=== PATIENT | female | born 1940 | race Caucasian/White ===

== ENCOUNTER 2017-08-20 16:34 | Emergency (ER) | payer OTHER ==
[2017-08-20 16:55] VITALS: BP 162/89; PULSE 119; TEMP 97.8; BMI 21.8
[2017-08-20] MEDS ORDERED: diphenhydrAMINE HCL 25 MG CAPSULE (FP) PO ONE ×2 (18:05→18:17)
[2017-08-20] MEDS ORDERED: CEPHALEXIN MONOHYDRATE 500 MG CAPSULE (UD) PO ONE (18:05)
--- NOTE | 2017-08-20 18:12 | PDOC ---
History of Present Illness - General Chief Complaint: Bite Stated Complaint: WOUND Time Seen by Provider: 08/20/17 17:54 History Source: Patient Exam Limitations: No Limitations - History of Present Illness Initial Comments: 08/20/17 18:15 Patient came for evaluation of hot, mildly tender, and pruritic lesion to her right under arm of humeral area. Is uncertain as to cause, thinks may be an insect bite. Denies fever, denies pain, denies any drainage from the area.no medications or relief of symptoms Timing/Duration: reports: getting worse Severity: Yes: mild, moderate Location: reports: extremities (left upper arm ) Respiratory Risk Factors: reports: no cause identified, insect bite, insect sting Associated Symptoms: reports: denies symptoms Past History - Travel Traveled outside of the country in the last 30 days: No Close contact w/someone who was outside of country & ill: No - Past Medical History Allergies/Adverse Reactions: Allergies Allergy/AdvReac Type Severity Reaction Status Date / Time Sulfa (Sulfonamide Allergy Unknown Verified 08/20/17 16:48 Antibiotics) Home Medications: Ambulatory Orders Amlodipine Besylate [Norvasc -] 5 mg PO BID 03/09/16 Aspirin [ASA -] 81 mg PO DAILY 03/09/16 Cephalexin Monohydrate [Keflex -] 500 mg PO Q8H #21 capsule 08/20/17 Diphenhydramine HCl [Benadryl -] 25 mg PO Q8H PRN #21 capsule 08/20/17 Asthma: Yes CVA: No COPD: No DVT: No Disorders: Yes (H/O UTIS.) HTN: No - Immunization History Immunization Up to Date: Yes - Suicide/Smoking/Psychosocial Hx Smoking History: Never smoked Have you smoked in the past 12 months: No Information on smoking cessation initiated: No Hx Alcohol Use: No Drug/Substance Use Hx: No Substance Use Type: None Review of Systems - Review of Systems Able to Perform ROS?: Yes Is the patient limited [place] proficient: Yes Constitutional: Yes: Symptoms Reported, See HPI, Malaise. No: Fever HEENTM: Yes: See HPI. No: Symptoms Reported, Throat Swelling Respiratory: Yes: See HPI. No: Symptoms reported, Cough, Wheezing Musculoskeletal: Yes: Symptoms Reported Integumentary: Yes: Symptoms Reported, See HPI All Other Systems: Reviewed and Negative *Physical Exam - Vital Signs Last Vital Signs Temp Pulse Resp BP Pulse Ox 97.8 F 119 H 17 162/89 98 08/20/17 16:49 08/20/17 16:49 08/20/17 16:49 08/20/17 16:49 08/20/17 16:49 - Physical Exam General Appearance: Yes: Nourished, Appropriately Dressed, Apparent Distress HEENT: positive: YASMEEN, Normal ENT Inspection, TMs Normal, Pharynx Normal Neck: positive: Supple. negative: Tender, Lymphadenopathy (R), Lymphadenopathy (L) Respiratory/Chest: positive: Lungs Clear, Normal Breath Sounds. negative: Wheezing Gastrointestinal/Abdominal: positive: Normal Bowel Sounds, Tender, Flat, Soft Musculoskeletal: positive: Normal Inspection. negative: CVA Tenderness Extremity: positive: Normal Capillary Refill, Normal Inspection, Normal Range of Motion Integumentary: positive: Dry, Warm, Erythema (heat to under arm right humerus), Ecchymosis. negative: Normal Color Neurologic: positive: table filler II-XII NML intact, Fully Oriented, Alert, Normal Mood/ Affect, Normal Response, Motor Strength 5/5 Progress Note - Progress Note Progress Note: Probable insect bite with erythema, will treat with early cellulitis as patient is under treatment for skin cancer from dermatology and may be mildly immunosuppressed. *DC/Admit/Observation/Transfer Diagnosis at time of Disposition: Insect bite Qualifiers: Encounter type: initial encounter Qualified Code(s): W57.XXXA - Bitten or stung by nonvenomous insect and other nonvenomous arthropods, initial encounter - Discharge Dispostion Disposition: HOME Condition at time of disposition: Stable Admit: No - Referrals Referrals: Janette Chaudhari MD [Primary Care Provider] - - Patient Instructions Printed Discharge Instructions: How to Care for an Insect Bite or Sting Additional Instructions: Rest, keep cool and dry- avoid strenuous activity or hot /humid environments Less hot showers, no abrasive soaps May use heavy creams like Eucerin or Cetaphil to keep skin moist May apply Aveeno, calamine lotion, [id number] hydrocortisone creams as needed for symptoms May use Benadryl at night for antihistamine, Zyrtec/ Laya or Claritin for daytime antihistamine use to help with itching Keflex 500 mg tablet every 8 hours for one week May use [id number] hydrocortisone cream on all areas except face Try to identify cause for rash and avoid exposures Followup with PMD in one week if no resolution Make appointment with clamp remover for evaluation when possible - Post Discharge Activity
[2017-08-20] MEDS ORDERED: CEPHALEXIN MONOHYDRATE 500 MG CAPSULE (UD) ONE (18:17)
== END 2017-08-20 18:20 | disposition home or self-care (01) ==
LOC: JERFT 16:34
DX: S40.861A Insect bite (nonvenomous) of right upper arm, initial encounter (principal); L03.113 Cellulitis of right upper limb; W57.XXXA Bitten or stung by nonvenomous insect and other nonvenomous arthropods, initial encounter; Y93.89 Activity, other specified; Y92.89 Other specified places as the place of occurrence of the external cause; Y99.8 Other external cause status
CPT/HCPCS: 99281-25

== ENCOUNTER 2017-09-17 10:33 | Emergency (ER) | payer OTHER ==
[2017-09-17 10:48] VITALS: BP 146/67; PULSE 98; TEMP 97.2; BMI 20.4
--- NOTE | 2017-09-17 11:58 | PDOC ---
History of Present Illness - General Chief Complaint: Pain Stated Complaint: HEADACHE Time Seen by Provider: 09/17/17 11:44 History Source: Patient - History of Present Illness Initial Comments: 09/17/17 11:57 Patient is a 76 y.o. female with a PMH of basal cell carcinoma (s/p resection), Asthma, HTN and recurrent UTI who presents to our ED today c/o localized L sided temporal pain without any visual changes, jaw claudication/pain, fevers/ chills. Patient states the pain began last night and has been constant with no relief provided by OTC Nsaids. Allergy: Sulfa Surgical: cataract surgery PMD: Dr. Baez Past History - Past Medical History Allergies/Adverse Reactions: Allergies Allergy/AdvReac Type Severity Reaction Status Date / Time Sulfa (Sulfonamide Allergy Unknown Verified 09/17/17 10:42 Antibiotics) Home Medications: Ambulatory Orders Amlodipine Besylate [Norvasc -] 5 mg PO BID 03/09/16 Aspirin [ASA -] 81 mg PO DAILY 03/09/16 Asthma: Yes Cancer: Yes (? skin) CVA: No COPD: No DVT: No Disorders: Yes (H/O UTIS.) HTN: No - Immunization History Immunization Up to Date: Yes - Suicide/Smoking/Psychosocial Hx Smoking History: Never smoked Have you smoked in the past 12 months: No Hx Alcohol Use: No Drug/Substance Use Hx: No Substance Use Type: None Review of Systems - Review of Systems Constitutional: No: Chills, Fever HEENTM: No: Blurred Vision, Double Vision, Mouth Pain, Mouth Swelling Respiratory: No: Shortness of Breath Cardiac (ROS): No: Chest Pain ABD/GI: No: Constipated, Diarrhea, Nausea, Vomiting : No: Burning, Dysuria *Physical Exam - Vital Signs Last Vital Signs Temp Pulse Resp BP Pulse Ox 97.2 F L 98 H 18 146/67 99 09/17/17 10:42 09/17/17 10:42 09/17/17 10:42 09/17/17 10:42 09/17/17 10:42 - Physical Exam General Appearance: Yes: Nourished, Appropriately Dressed HEENT: positive: EOMI, YASMEEN, Other (frontal lobe abrasions 2/2 to recent basal cell carcinoma resection). negative: TM Bulging, TM Dull, TM Erythema Neck: positive: Trachea midline, Supple Respiratory/Chest: positive: Lungs Clear Cardiovascular: positive: S1, S2 Musculoskeletal: negative: CVA Tenderness (R), CVA Tenderness (L) Extremity: positive: Normal Capillary Refill, Normal Inspection Integumentary: positive: Normal Color, Dry, Warm Neurologic: positive: viscose department worker II-XII NML intact, Fully Oriented, Alert, Finger to Nose, Other (non-antalgic gait) ED Treatment Course - LABORATORY CBC & Chemistry Diagram: 09/17/17 12:14 09/17/17 12:17 Medical Decision Making - Medical Decision Making 09/17/17 16:13 Patient is a 76 y.o female who presents to the ED c/o acute onset of L sided temporal pain. Initial clinical suspicion for GCA - ESR wnL, CT Head negative for acute intracranial process. Patient to be discharged home with return precautions and Tylenol for pain control. *DC/Admit/Observation/Transfer Diagnosis at time of Disposition: Headache - Discharge Dispostion Disposition: HOME Condition at time of disposition: Good Admit: No - Referrals Referrals: Janette Chaudhari MD [Primary Care Provider] - - Patient Instructions Printed Discharge Instructions: DI for Headache Additional Instructions: You can take Tylenol for your headaches. Please return to the Emergency Department for any new/worsening/concerning symptoms. - Post Discharge Activity
[2017-09-17 12:19] LABS: BASO % 0.6 % (0-2.0); EOS % 1.2 % (0-4.5); HEMATOCRIT 46.1 % (32.4-45.2); HEMOGLOBIN 15.4 GM/dL (10.7-15.3); MCH 29.7 pg (25.7-33.7); MCHC 33.4 g/dl (32.0-36.0); MEAN CELL VOLUME 88.9 fl (80-96); MONO % 7.5 % (3.8-10.2); NEUT % 69.7 % (42.8-82.8); PLATELET COUNT 324 K/MM3 (134-434); RBC 5.19 M/mm3 (3.60-5.2); RDW 12.5 % (11.6-15.6); WHITE BLOOD COUNT 9.1 K/mm3 (4.0-10.0)
[2017-09-17] MEDS ORDERED: ACETAMINOPHEN 500 MG TABLET (FP) PO ONE (12:25)
[2017-09-17] MEDS ORDERED: ACETAMINOPHEN 325 MG TABLET (FP) ONE (12:27)
[2017-09-17 13:09] LABS: ALBUMIN 4.3 g/dl (3.4-5.0); ALK PHOS 76 U/L (45-117); ANION GAP 7 (8-16); BILIRUBIN,TOTAL 0.4 mg/dL (0.2-1.0); BLOOD UREA NITROGEN 16 mg/dL (7-18); CALCIUM 9.5 mg/dL (8.5-10.1); CHLORIDE 102 mmol/L (98-107); CO2 28 mmol/L (21-32); CREATININE 0.8 mg/dL (0.55-1.02); GLUCOSE,RANDOM 95 mg/dL (74-106); POTASSIUM 5.1 mmol/L (3.5-5.1); SGOT/AST 18 U/L (15-37); SGPT/ALT 20 U/L (12-78); SODIUM 137 mmol/L (136-145); TOT PROT 8.3 g/dl (6.4-8.2)
--- NOTE | 2017-09-17 15:24 | PDOC ---
Attending Attestation - Resident Resident Name: Emily Graham - ED Attending Attestation I have performed the following: I have examined & evaluated the patient, The case was reviewed & discussed with the resident, I agree w/resident's findings & plan, Exceptions are as noted <Nadia Melendez - Last Filed: 09/17/17 15:24> - HPI HPI: 09/17/17 15:55 Patient is a 76 year old female with a significant past medical history of Basal cell carcinoma, asthma, HTN, and urinary tract infections, who presents to the ED with complaints of left sided headache that began last night. Patient reports waking up from sleep last night, and began experiencing sudden onset of intense left sided headache. She reports headache has been constant since last night, prompting her to come in to the ED for evaluation. Patient reports taking tylenol for pain, with slight relief. Denies hx of similar episodes. Denies nausea, vomiting. Denies changes in vision , numbness, tingles. Denies SOB, chest pain. Allergies: Sulfa Social history: No smoking. No alcohol. No illicit drugs. Surgical history: Cataract surgery PMD: Dr. Cazares - Physicial Exam PE: 09/17/17 15:55 GENERAL: Awake, alert, and fully oriented, in no acute distress HEAD: +Hyperkeratotic lesion on the upper forehead, hx of basal cell carcinoma. No candice tenderness. No temporal arterial tenderness. No signs of trauma EYES: PERRLA, EOMI, sclera anicteric, conjunctiva clear ENT: Auricles normal inspection, hearing grossly normal, nares patent, oropharynx clear without exudates. Moist mucosa NECK: Normal ROM, supple, no lymphadenopathy, JVD, or masses LUNGS: Breath sounds equal, clear to auscultation bilaterally. No wheezes, and no crackles HEART: Regular rate and rhythm, normal S1 and S2, no murmurs, rubs or gallops ABDOMEN: Soft, nontender, normoactive bowel sounds. No guarding, no rebound. No masses EXTREMITIES: Normal range of motion, no edema. No clubbing or cyanosis. No cords, erythema, or tenderness NEUROLOGICAL: Cranial nerves II through XII grossly intact. Normal speech, SKIN: Warm, Dry, normal turgor, no rashes or lesions noted. - Medical Decision Making 09/17/17 15:55 Documentation prepared by Khai Lao, acting as medical reviewer for Nadia Melendez MD, /DO. <Khai Lao - Last Filed: 09/17/17 15:55>
[2017-09-17 17:01] LABS: ERYTHROCYTE SEDIMENTATION RATE 14 mm/hr (0-30)
--- NOTE | 2017-09-18 13:31 | EKG ---
Test Reason : Blood Pressure : / mmHG Vent. Rate : 099 BPM Atrial Rate : 099 BPM P-R Int : 138 ms QRS Dur : 084 ms QT Int : 352 ms P-R-T Axes : 072 -13 054 degrees QTc Int : 451 ms NORMAL SINUS RHYTHM LOW VOLTAGE QRS BORDERLINE ECG Confirmed by MD RUDY, JUAN ([id number]) on 09/18/2017 1:30:44 PM Referred By: Confirmed By:JUAN GRANT MD
== END 2017-09-17 17:31 | disposition home or self-care (01) ==
LOC: JERFT 10:33 → JER 10:33
DX: R51 Headache (principal)
CPT/HCPCS: 36415; 70450-TC; 80053; 85025; 85651; 93005; 93010; 99283-25

== ENCOUNTER 2017-11-05 03:53 | Emergency (ER) | payer OTHER ==
[2017-11-05 04:00] VITALS: BP 177/78; PULSE 103; TEMP 98; BMI 21.8
--- NOTE | 2017-11-05 04:36 | PDOC ---
History of Present Illness - General Chief Complaint: Pain Stated Complaint: RIB PAIN Time Seen by Provider: 11/05/17 04:33 History Source: Patient Exam Limitations: No Limitations - History of Present Illness Initial Comments: 11/05/17 04:36 Pt with pain to left side under lower ribs for several weeks. 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 Denies fever or chills or cough. Past History - Past Medical History Allergies/Adverse Reactions: Allergies Allergy/AdvReac Type Severity Reaction Status Date / Time Sulfa (Sulfonamide Allergy Unknown Verified 11/05/17 03:56 Antibiotics) Home Medications: Ambulatory Orders Amlodipine Besylate [Norvasc -] 5 mg PO BID 03/09/16 Aspirin [ASA -] 81 mg PO DAILY 03/09/16 Asthma: Yes Cancer: Yes (? skin) CVA: No COPD: No DVT: No Disorders: Yes (H/O UTIS.) HTN: No - Immunization History Immunization Up to Date: Yes - Suicide/Smoking/Psychosocial Hx Smoking History: Unknown if ever smoked Have you smoked in the past 12 months: No Hx Alcohol Use: No Drug/Substance Use Hx: No Substance Use Type: None Review of Systems - Review of Systems Constitutional: Yes: Symptoms Reported, See HPI. No: Chills, Diaphoresis, Fever , Loss of Appetite, Malaise, Weight Stable, Unexplained wgt Loss HEENTM: Yes: Symptoms Reported, See HPI. No: Eye Pain, Blurred Vision, Tearing , Recent change in vision, Double Vision, Ocular Prothesis, Ear Discharge, Nose Pain, Nose Congestion, Tinnitus Respiratory: Yes: Symptoms reported, See HPI, Other (left lower rib pain). No: Cough, Orthopnea, Shortness of Breath Cardiac (ROS): Yes: Symptoms Reported, See HPI. No: Chest Pain, Edema, Irregular Heart Rate, Lightheadedness, Palpitations, Chest Tightness ABD/GI: Yes: Symptoms Reported, See HPI. No: Abdominal Distended, Abd. Pain w/ defecation, Blood Streaked Bowels, Constipated, Difficulty Swallowing : Yes: Symptoms Reported, See HPI. No: Burning, Dysuria, Discharge, Frequency , Flank Pain, Hematuria, Pain Musculoskeletal: Yes: Symptoms Reported, See HPI. No: Back Pain, Joint Pain, Joint Swelling, Muscle Pain, Neck Pain Integumentary: Yes: Symptoms Reported, See HPI. No: Bruising, Change in Color, Change in Hair/Nails, Dryness, Flushing, Lesions Neurological: Yes: Symptoms reported, See HPI. No: Headache, Numbness, Paresthesia, Pre-Existing Deficit, Seizure, Weakness Psychiatric: No: Anxiety, Depression, Frequent Crying, Stressors, Sleep Pattern Change Endocrine: Yes: Symptoms Reported, See HPI. No: Excessive Sweating, Flushing, Intolerance to Cold, Intolerance to Heat, Increased Hunger, Unexplained Weight Gain Hematologic/Lymphatic: Yes: Symptoms Reported, See HPI. No: Anemia, Blood Clots , Easy Bleeding, Lymph Node Abnormalities *Physical Exam - Vital Signs Last Vital Signs Temp Pulse Resp BP Pulse Ox 98 F 103 H 18 177/78 96 11/05/17 03:59 11/05/17 03:59 11/05/17 03:59 11/05/17 03:59 11/05/17 03:59 - Physical Exam Comments: 11/05/17 04:39 *Physical Exam General Appearance: Yes: Appropriately Dressed. No: Apparent Distress, Intoxicated HEENT: positive: EOMI, YASMEEN, Normal ENT Inspection, Normal Voice, TMs Normal, Pharynx Normal. negative: Pale Conjunctivae, Photophobia, Scleral Icterus (R), Scleral Icterus (L) Neck: positive: Trachea midline, Normal Thyroid, Supple. negative: Tender, Rigid, Carotid bruit, Stridor, Lymphadenopathy (R), Lymphadenopathy (L), Thyromegaly Respiratory/Chest: positive: Lungs Clear, Normal Breath Sounds. negative: Chest Tender, Respiratory Distress, Accessory Muscle Use, Labored Respiration, RES, Crackles, Rales, Rhonchi, Stridor, Wheezing, Dullness Cardiovascular: positive: Regular Rhythm, Regular Rate, S1, S2. negative: Edema , JVD, Murmur, Bradycardia, Tachycardia Vascular Pulses: Dorsalis-Pedis (R): 2+, Doralis-Pedis (L): 2+ Gastrointestinal/Abdominal: positive: Normal Bowel Sounds, Flat, Soft. negative : Tender, Organomegaly, Pulsatile Mass, Increased Bowel Sounds, Decreased BS, Distended, Guarding, Rebound, Hernia, Hepatomegaly, Spleenomegaly Lymphatic: negative: Adenopathy, Tenderness Musculoskeletal: positive: Normal Inspection. negative: CVA Tenderness, Decreased Range of Motion Extremity: positive: Normal Capillary Refill, Normal Inspection, Normal Range of Motion, Pelvis Stable. negative: Tender, Pedal Edema, Swelling, Erythema Integumentary: positive: Normal Color, Dry, Warm. negative: Cyanotic, Erythema , Jaundice, Rash Neurologic: positive: optical brightener maker helper II-XII NML intact, Fully Oriented, Alert, Normal Mood/ Affect, Motor Strength 5/5. negative: EOM Palsy, Facial Droop, Sensory Deficit ED Treatment Course - RADIOLOGY Radiology Studies Ordered: Category Date Time Status CHEST CT WITHOUT CONTRAST [CT] Stat CT Scan 11/05/17 04:35 Ordered *DC/Admit/Observation/Transfer Diagnosis at time of Disposition: Atypical chest pain, Left-sided chest wall pain - Discharge Dispostion Disposition: HOME Condition at time of disposition: Stable Admit: No - Referrals - Patient Instructions Printed Discharge Instructions: DI for Atypical Chest Pain Additional Instructions: take tylenol or Motrin for pain as needed. Return if any problems - Post Discharge Activity
== END 2017-11-05 05:41 | disposition home or self-care (01) ==
LOC: JER 03:53
DX: R07.89 Other chest pain (principal); Z87.440 Personal history of urinary (tract) infections; Z88.0 Allergy status to penicillin; J45.909 Unspecified asthma, uncomplicated
CPT/HCPCS: 71250-TC; 99281-25

== ENCOUNTER 2021-12-05 16:21 | Emergency (ER) | payer OTHER ==
[2021-12-05 16:34] VITALS: BP 174/88; PULSE 135; TEMP 97.9; BMI 21.8
== END 2021-12-05 17:19 | disposition left against medical advice (07) ==
LOC: JER 16:21
DX: R00.0 Tachycardia, unspecified (principal)
CPT/HCPCS: 93005; 93010; 99285-25

== ENCOUNTER 2023-09-09 12:39 | Emergency (ER) | payer OTHER ==
[2023-09-09 12:56] VITALS: BP 140/75; PULSE 103; RESP 18; TEMP 98.1; BMI 20.9
[2023-09-09 13:12] LABS: PH,URINE 8.5 (5.0-8.0); URINE APPEARANCE CLEAR; URINE BILIRUBIN NEGATIVE (NEGATIVE); URINE COLOR YELLOW; URINE GLUCOSE (UA) NEGATIVE (NEGATIVE); URINE KETONE NEGATIVE (NEGATIVE); URINE LEUK ESTERASE NEGATIVE (NEGATIVE); URINE NITRITE NEGATIVE (NEGATIVE); URINE PROTEIN NEGATIVE (NEGATIVE)
== END 2023-09-09 15:35 | disposition left against medical advice (07) ==
LOC: JER 12:39
DX: R30.0 Dysuria (principal); R10.30 Lower abdominal pain, unspecified
CPT/HCPCS: 81003; 87086; 99283-25